=== PATIENT | male | born 1980 | race Caucasian/White ===

== ENCOUNTER 2016-05-25 11:55 | Emergency (ER) | payer OTHER ==
[~2016-05-25] VITALS: Ht 188 cm; Wt 117.9 kg
[~2016-05-25 11:55] MED LIST: CYCLOBENZAPRINE10 M1 PO; FLEXERIL10 MG PO; MOBIC15 M1 PO; NAPROSYN 500 M500 MG PO; PERCOCET 325 MG1 TA2 PO
[2016-05-25 12:11] VITALS: BP 137/85
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
--- NOTE | 2016-05-25 13:44 | RADIOLOGY REPORT ---
EXAMINATION: XR HAND, RIGHT CLINICAL INFORMATION: 35-year-old male with right hand injury. COMPARISON: None TECHNIQUE: AP, lateral, and oblique views of the right hand. FINDINGS: Linear, transverse, minimally displaced fracture is present involving the midshaft of the right 4th metacarpal with angulation deformity. The remainder of the visualized bones, articular margins, joint space appear unremarkable. The soft tissues are unremarkable. IMPRESSION: Fracture midshaft of the right 4th metacarpal.
[2016-05-25] MEDS ORDERED: PERCOCET 5-3251 EACH PO (14:14)
== END 2016-05-25 14:22 ==
LOC: ERH 11:55
DX: S62.324A Displaced fracture of shaft of fourth metacarpal bone, right hand, initial encounter for closed fracture (principal); Y04.0XXA Assault by unarmed brawl or fight, initial encounter; Y93.89 Activity, other specified; Y92.9 Unspecified place or not applicable
CPT/HCPCS: 73130-RT

== ENCOUNTER 2016-09-13 15:50 | Emergency (ER) | payer OTHER ==
[~2016-09-13] VITALS: Ht 188 cm; Wt 117.9 kg
[~2016-09-13 15:50] MED LIST changes: +PERCOCET 5-3251 EACH PO
[2016-09-13 16:35] LABS: ABSOLUTE BASOPHIL COUNT 0 /CUMM (0.0-0.2); ABSOLUTE EOSINOPHIL COUNT 0.2 /CUMM (0.0-0.7); ABSOLUTE GRANULOCYTE CT 6.3 /CUMM (1.4-6.5); ABSOLUTE LYMPH COUNT 1.9 /CUMM (1.2-3.4); ABSOLUTE MONOCYTE COUNT 0.9 /CUMM (0.10-0.60); BASOPHIL % 0.2 % (0.0-2.0); EOSINOPHIL % 1.9 % (0-5); GRANULOCYTE % 67.9 % (42.2-75.2); HEMATOCRIT 42.6 % (42-52); MEAN CORPUSCULAR HGB 28.4 PG (27.0-31.0); MEAN CORPUSCULAR HGB CONC 33.9 G/DL (33.0-37.0); MEAN CORPUSCULAR VOLUME 83.9 FL (80.0-94.0); MEAN PLATELET VOLUME 8.7 FL (7.4-10.4); PLATELET COUNT 248 /CUMM (130-400); RBC DISTRIBUTION WIDTH 12.9 % (11.5-14.5); RED BLOOD CELL CT 5.08 /CUMM (4.70-6.10); WHITE BLOOD CELL COUNT 9.3 /CUMM (4.8-10.8)
--- NOTE | 2016-09-13 17:13 | ED GENERAL ADULT ---
History of Present Illness General Chief Complaint: Abdominal Pain/Flank Pain Stated Complaint: ABD PAIN Source: patient Exam Limitations: no limitations Vital Signs & Intake/Output Vital Signs & Intake/Output Vital Signs Date Time Temp Pulse Resp B/P B/P Pulse O2 O2 Flow FiO2 Mean Ox Delivery Rate 09/13 1902 97.7 66 18 118/61 98 Room Air 09/13 1608 97.7 90 18 131/78 98 Room Air Allergies Coded Allergies: propofol (UNKNOWN 09/13/16) Uncoded Allergies: ANESTHESIA (WAS A CHILD/UNKNOWN SEVERITY 10/19/10) Reconcile Medications Cyclobenzaprine HCl 10 MG TABLET 1 TAB PO TID PRN MUSCLE RELAXANT MAY CAUSE DROWSINESS CYCLOBENZAPRINE HCL (Flexeril) 10 MG TAB 1 TAB PO TID PRN MUSCLE RELAXATION Dicyclomine Hydrochloride (Bentyl) 10 MG CAPSULE 1 CAP PO TID PRN abdominal cramping Meloxicam (Mobic) 15 MG TABLET 1 TAB PO DAILY PRN PAIN/INFLAMMATION Naproxen (Naprosyn) 500 MG TAB 1 TAB PO BID PRN CHEST PAIN PLEASE TAKE IT WITH FOOD Oxycodone HCl/Acetaminophen (Percocet 5-325 MG Tablet) 5 MG-325 MG TABLET 1 TAB PO BID PRN PAIN OXYCODONE HCL/ACETAMINOPHEN (Percocet 5-325 MG Tablet) 325 MG/5 MG TAB 1-2 TAB PO Q4-6 PRN PRN PAIN Triage Note: PT STATES THAT HE HAS CHROHNS DISEASE AND THAT FOR THE PAST HOUR HE HAS BEEN HAVING DIFFUSE ABD PAIN/N. DENIES VOMITTING. PAIN IS INTERMITTANT AND SHARP IN NATURE. DENIES URINARY SYMPTOMS Triage Nurses Notes Reviewed? yes HPI: 36-year-old male with a history of Crohn's disease presenting with diffuse sudden onset of sharp/cramping diffuse abdominal pain 2 hours. Reports pain started after eating spicey chicken wings, and that his Crohn's is normally flared by spicy foods. Endorses nausea. Denies vomiting, diarrhea, the stools, fevers, dysuria. Took 10 mg of prednisone at home without any pain relief. (ROZINA ZUNIGA PA-C) Past History Travel History Traveled to [place] past 21 day No Medical History Any Pertinent Medical History? 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 No (ROZINA ZUNIGA PA-C) Review of Systems Review of Systems Constitutional: Reports: no symptoms. EENTM: Reports: no symptoms. Respiratory: Reports: no symptoms. Cardiovascular: Reports: no symptoms. GI: Reports: abdominal pain, bloating, nausea. Denies: constipation, diarrhea, melena, bloody stool, vomiting. Genitourinary: Reports: no symptoms. Musculoskeletal: Reports: no symptoms. Skin: Reports: no symptoms. Neurological/Psychological: Reports: no symptoms. Hematologic/Endocrine: Reports: no symptoms. Immunologic/Allergic: Reports: no symptoms. (ROZINA ZUNIGA PA-C) Physical Exam Physical Exam General Appearance: well developed/nourished, no apparent distress, alert, awake , comfortable Head: atraumatic Eyes: Bilateral: normal appearance. Respiratory: normal breath sounds, lungs clear Cardiovascular: regular rate/rhythm, normal peripheral pulses Gastrointestinal: normal bowel sounds, soft, no distention, diffusely tender to palpation, no rebound or guarding Rectal: heme negative stool Neurologic/Psych: awake, alert, oriented x 3, normal gait, normal mood/affect Skin: intact, normal color, warm/dry Core Measures ACS in differential dx? No CVA/TIA Diagnosis: No Severe Sepsis Present: No Septic Shock Present: No (ROZINA ZUNIGA PA-C) Progress Differential Diagnoses I considered the following diagnoses in my evaluation of the patient: [Crohn's flare versus gastroenteritis versus food poisoning versus pancreatitis versus biliary versus appendicitis] Plan of Care: Orders Procedure Date/time Status URINALYSIS 09/13 1714 Complete LIPASE 09/13 1615 Complete LACTIC ACID 09/13 161 Complete COMPREHENSIVE METABOLIC PANEL 09/13 161 Complete CBC WITHOUT DIFFERENTIAL 09/13 161 Complete Current Medications Sig/Cole Start time Last Medication Dose Stop Time Status Admin Dicyclomine HCl 20 MG ONCE ONE 09/13 2014 UNVr (Bentyl) 09/14 2015 Laboratory Tests 09/13/16 1910: Lactic Acid Cancelled 09/13/16 1740: Urine Color YEL, Urine Clarity HAZY H, Urine pH 6.5, Ur Specific Wilson 1.020, Urine Protein NEG, Urine Ketones TRACE H, Urine Nitrite NEG, Urine Bilirubin NEG, Urine Urobilinogen 0.2, Ur Leukocyte Esterase NEG, Ur Microscopic SEDIMENT EXAMINED, Urine RBC 3-5, Urine WBC RARE, Ur Epithelial Cells RARE, Urine Mucus RARE, Urine Hemoglobin TRACE-LYSED H, Urine Glucose NEG 09/13/16 1714: Lipase Cancelled 09/13/16 1615: Anion Gap 15, Estimated GFR > 60, BUN/Creatinine Ratio 16.7, Glucose 90, Lactic Acid 1.7, Calcium 10.7 H, Total Bilirubin 0.5, AST 67 H, ALT 100 H, Alkaline Phosphatase 99, Total Protein 8.2, Albumin 5.1 H, Globulin 3.1, Albumin/ Globulin Ratio 1.6, Lipase 58, CBC w Diff NO MAN DIFF REQ, RBC 5.08, MCV 83.9, MCH 28.4, RDW 12.9, MPV 8.7, Gran % 67.9, Lymphocytes % 20.7, Monocytes % 9.3, Eosinophils % 1.9, Basophils % 0.2, Absolute Granulocytes 6.3, Absolute Lymphocytes 1.9, Absolute Monocytes 0.9 H, Absolute Eosinophils 0.2, Absolute Basophils 0, PUBS MCHC 33.9 Labs and urine all within normal limits. CT scan abdomen and pelvis was negative for acute Crohn's inflammation, but did show enlarged nonspecific retroperitoneal lymph nodes. Patient reports moderate pain relief after GI cocktail, morphine, Bentyl. Suspect gastroenteritis secondary to possible foul chicken or spicy food. We'll discharge home with Rx Bentyl, also instructed to use Maalox [id number] as needed. Will follow up with his PMD in the next 1-2 days, and given strict return precautions for any new or worsening symptoms. (NADIA ARMENTA,ROZINA) Initial ED EKG: none (NADIA ARMENTA,ROZINA) Departure Departure Disposition: HOME OR SELF CARE Condition: Stable Clinical Impression Primary Impression: Abdominal pain Referrals: PATIENT HAS NO PRIMARY CARE DR (PCP/Family) Additional Instructions: Take 10 mg of Bentyl every 8 hours as needed for abdominal pain/cramping. Follow-up with your primary care provider for reevaluation. Return to the ER for any new or worsening symptoms. Departure Forms: Customer Survey General Discharge Information Prescriptions: Current Visit Scripts Dicyclomine Hydrochloride (Bentyl) 1 CAP PO TID PRN abdominal cramping #20 CAP (ROZINA ZUNIGA PA-C) PA/NEWSPAPER ILLUSTRATOR Co-Sign Statement Statement: ED Attending supervision documentation- [] I saw and evaluated the patient. I have also reviewed all the pertinent lab results and diagnostic results. I agree with the findings and the plan of care as documented in the PA's/NEWSPAPER ILLUSTRATOR's documentation. [x] I have reviewed the ED Record and agree with the PA's/NEWSPAPER ILLUSTRATOR's documentation. [] Additions or exceptions (if any) to the PAs/NEWSPAPER ILLUSTRATOR's note and plan are summarized below: [] (CHRISTIAN LOBO,NANNETTE Mobley) Critical Care Note Critical Care Note Critical Care Time: non-applicable (NADIA ARMENTA,ROZINA)
[2016-09-13 19:02] VITALS: BP 118/61
--- NOTE | 2016-09-13 19:47 | CT SCAN REPORT ---
EXAMINATION: CT SCAN OF THE ABDOMEN AND PELVIS WITH CONTRAST CLINICAL INFORMATION: Crohn's colitis. Diffuse abdominal pain. COMPARISON: CT scan of the abdomen and pelvis 10/20/2010. TECHNIQUE: Process Development Manager images were obtained. CT acquisition of the abdomen and pelvis was performed and with intravenous administration of 95 mL Optiray 320. No adverse contrast reaction was reported. DLP: 703.48 mGy-cm. FINDINGS: There is minimal bibasilar subsegmental atelectasis. No pleural or pericardial effusion. Liver attenuation is homogeneous and there is no discrete hepatic parenchymal mass. The gallbladder is normal. No abnormal intrahepatic or extrahepatic biliary ductal dilatation. Spleen and pancreas are normal. Adrenal glands are normal. Kidneys demonstrate symmetric nephrographic enhancement. No discrete renal parenchymal mass. No hydronephrosis. No abnormal perinephric inflammation or collection. There is no abnormal mass or calcification along the expected course of the right or left ureters. The urinary bladder is unremarkable. There is subserosal fat within the distal ileum consistent with the clinical history of chronic inflammatory bowel disease. The stomach and small bowel are otherwise unremarkable. There is no obstruction. The colon and appendix are normal. There is no abnormal perirectal or presacral inflammation. No free intraperitoneal air or fluid. A few scattered nonspecific retroperitoneal lymph nodes are noted. The prostate gland is unremarkable. The abdominal wall is intact. There is no acute osseous finding. No worrisome lytic or blastic osseous lesion. IMPRESSION: There are scattered nonspecific retroperitoneal lymph nodes. These findings may represent a manifestation of mesenteric adenitis. Otherwise no discrete finding to provide an explanation for the patient's abdominal pain. There is a subserosal fat along a short segment of the distal ileum that is consistent with the patient's clinical history of chronic inflammatory bowel disease. No clear evidence of active bowel inflammation.
[2016-09-13] MEDS ORDERED: BENTYL10 M1 PO (20:25)
== END 2016-09-13 20:43 ==
LOC: ERH 15:50
PROVIDERS: Emergency Medicine
DX: R10.84 Generalized abdominal pain (principal)
CPT/HCPCS: 74177; 81001; 96374; 96375; J1885; J2930

== ENCOUNTER 2017-11-10 09:17 | Emergency (ER) | payer OTHER ==
[~2017-11-10] VITALS: Ht 188 cm; Wt 105.2 kg
[~2017-11-10 09:17] MED LIST changes: +BENTYL10 M1 PO; +CYCLOBENZAPRINE5 M2 PO; +IBUPROFEN800 M1 PO; +MERCAPTOPURINE50 M1 PO; +ZOFRAN ODT4 M1 SL
[2017-11-10 11:45] LABS: ABSOLUTE BASOPHIL COUNT 0 /CUMM (0.0-0.2); ABSOLUTE EOSINOPHIL COUNT 0.4 /CUMM (0.0-0.7); ABSOLUTE LYMPH COUNT 1.6 /CUMM (1.2-3.4); ABSOLUTE MONOCYTE COUNT 0.8 /CUMM (0.10-0.60); BASOPHIL % 0.3 % (0.0-2.0); HEMATOCRIT 42.3 % (42-52); MEAN CORPUSCULAR HGB 29.2 PG (27.0-31.0); MEAN CORPUSCULAR HGB CONC 34.6 G/DL (33.0-37.0); MEAN CORPUSCULAR VOLUME 84.2 FL (80.0-94.0); MEAN PLATELET VOLUME 8.9 FL (7.4-10.4); PLATELET COUNT 235 /CUMM (130-400); RED BLOOD CELL CT 5.02 /CUMM (4.70-6.10); WHITE BLOOD CELL COUNT 7.9 /CUMM (4.8-10.8)
--- NOTE | 2017-11-10 11:49 | ED GI/GU/ABDOMINAL COMPLAINT ---
History of Present Illness General Chief Complaint: Abdominal Pain/Flank Pain Stated Complaint: ABD PAIN Source: patient Exam Limitations: no limitations Vital Signs & Intake/Output Vital Signs & Intake/Output Vital Signs Date Time Temp Pulse Resp B/P B/P Pulse O2 O2 Flow FiO2 Mean Ox Delivery Rate 11/10 1503 98.8 66 18 124/66 99 11/10 1142 98.9 59 18 144/86 100 11/10 0937 97.0 74 20 109/67 99 Room Air Allergies Coded Allergies: No Known Allergies (06/30/17) Triage Note: PT TO ED WITH MOTHER FOR C/O ABD PAIN, N/V/D X 1 WEEK. H/O CROHN'S. DENIES S/S. DR WEAVER IS GI MD. Triage Nurses Notes Reviewed? yes HPI: 37-year-old white male with long-standing history of Crohn's disease presents with a worsening diffuse abdominal pain associated with nausea and one episode of bloody stool over the past week. He has not been taking his medications compliantly. He denies any previous history of fistulas or surgery. He is not on any steroids at this time. He reports that his symptoms are consistent with his previous Crohn's flares. He denies any fever, chills, melena, hematemesis, back pain, rash, chest pain or UTI symptoms. Patient reports his last colonoscopy was approximately [address] Weaver during which time they found "a lot of lumps". He does not have his current medications with him. Past History Travel History Traveled to [place] past 21 day No Medical History Any Pertinent Medical History? 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 No Review of Systems Review of Systems Constitutional: Reports: see HPI. Denies: no symptoms, chills, diaphoresis, fever, malaise, weakness, unexplained weight loss. All Other Systems: Reviewed and Negative Physical Exam Physical Exam General Appearance: well developed/nourished, alert, awake, moderate distress Head: atraumatic, normal appearance Eyes: Bilateral: normal appearance, PERRL, EOMI, normal inspection. Ears, Nose, Throat, Mouth: hearing grossly normal, moist mucous membrane Neck: normal inspection, supple, full range of motion, normal alignment Respiratory: normal breath sounds, chest non-tender, no respiratory distress, quiet respiration, lungs clear Cardiovascular: regular rate/rhythm Gastrointestinal: guarding, tenderness (diffuse, more in RLQ) Back: normal inspection, normal range of motion Extremities: normal range of motion Neurologic/Psych: no motor/sensory deficits, awake, alert, oriented x 3 Core Measures ACS in differential dx? No Sepsis Present: No Sepsis Focused Exam Completed? No Progress Differential Diagnosis: appendicitis, biliary colic, bowel obstruction, cholecystitis, diverticulitis, gastritis, hepatitis, ischemic bowel, inflamm bowel dis Plan of Care: Orders Procedure Date/time Status URINALYSIS 11/11 923 Complete LIPASE 11/11 923 Complete LACTIC ACID 11/11 923 Complete COMPREHENSIVE METABOLIC PANEL 11/11 923 Complete CBC WITHOUT DIFFERENTIAL 11/11 923 Complete Laboratory Tests 11/10/17 1224: Lactic Acid Cancelled 11/10/17 1130: Anion Gap 10, Estimated GFR > 60, BUN/Creatinine Ratio 14.3, Glucose 102 H, Lactic Acid 1.1, Calcium 9.9, Total Bilirubin 0.4, AST 43, ALT 85 H, Alkaline Phosphatase 85, Total Protein 7.2, Albumin 4.5, Globulin 2.7, Albumin/Globulin Ratio 1.7, Lipase 53, CBC w Diff NO MAN DIFF REQ, RBC 5.02, MCV 84.2, MCH 29.2, MCHC 34.6, RDW 13.0, MPV 8.9, Gran % 64.0, Lymphocytes % 20.8, Monocytes % 9.9 H, Eosinophils % 5.0, Basophils % 0.3, Absolute Granulocytes 5.0, Absolute Lymphocytes 1.6, Absolute Monocytes 0.8 H, Absolute Eosinophils 0.4, Absolute Basophils 0 11/10/17 0940: Urine Color YEL, Urine Clarity CLEAR, Urine pH 7.5, Ur Specific [place] 1.010, Urine Protein NEG, Urine Ketones NEG, Urine Nitrite NEG, Urine Bilirubin NEG, Urine Urobilinogen 0.2, Ur Leukocyte Esterase NEG, Ur Microscopic EXAM NOT REQUIRED, Urine Hemoglobin NEG, Urine Glucose NEG Initial ED EKG: none Comments: Patient continues to have abdominal pain after receiving morphine, Zofran, and Solu-Medrol. Dilaudid 0.5 mg has been ordered. Patient's lab data and CAT scan showed no acute inflammatory state. His CAT scan does show evidence of Crohn's disease but without acute inflammatory changes. Patient will be given a referral to GI quality control engineer and placed on a course of prednisone as well. Departure Departure Time of Disposition: 1524 Disposition: HOME OR SELF CARE Condition: Stable Clinical Impression Primary Impression: Crohns disease Qualifiers: Gastrointestinal tract location: unspecified location Digestive disease complication type: without complication Qualified Code: K50.90 - Crohn's disease, unspecified, without complications Secondary Impressions: Abdominal pain Qualifiers: Abdominal location: generalized Qualified Code: R10.84 - Generalized abdominal pain Referrals: Danie LOBO,Krys Dixon APRN (PCP/Family) Departure Forms: Customer Survey General Discharge Information
[2017-11-10 15:03] VITALS: BP 124/66
--- NOTE | 2017-11-10 15:09 | CT SCAN REPORT ---
EXAMINATION: CT ABDOMEN AND PELVIS WITH CONTRAST CLINICAL INFORMATION: Crohn's disease. Abdominal pain. COMPARISON: 03/19/2017 TECHNIQUE: Multidetector volumetric imaging was performed of the abdomen and pelvis following IV administration of 95 mL of Optiray 320 intravenous contrast. Sagittal and coronal reformatted images were obtained on the technologist's workstation. DLP: 705.33 mGy-cm FINDINGS: LUNG BASES: The visualized lung bases are unremarkable. LIVER, GALLBLADDER, AND BILIARY TREE: The liver is normal in size, shape, and attenuation. No focal hepatic lesion or biliary ductal dilatation is present. The gallbladder is unremarkable with no evidence of radiopaque gallstones, gallbladder wall thickening, or obvious pericholecystic inflammatory changes. PANCREAS: Unremarkable. SPLEEN: Unremarkable. ADRENAL GLANDS: Unremarkable. KIDNEYS AND URETERS: The kidneys are normal in size, shape, and attenuation. No hydronephrosis, hydroureter, or calculi seen. No perinephric stranding. BLADDER: Unremarkable. GASTROINTESTINAL TRACT: There are normal caliber and normal appearing oral contrast containing small bowel loops throughout the abdomen. There is a normal and unchanged appearing retrocecal appendix. No inflammatory changes are seen in the region of the terminal ileum or ileocecal junction. ABDOMINAL WALL: No significant hernia is appreciated. LYMPH NODES: Normal. VASCULAR: Unremarkable. PELVIC VISCERA: Unremarkable. OSSEOUS STRUCTURES: Unremarkable. IMPRESSION: Stable appearing changes of the terminal ileum with fatty infiltration of the bowel wall consistent with the given history of Crohn's colitis. There is no evidence of acute inflammatory change or abscess. A normal retrocecal appendix is present.
[2017-11-10] MEDS ORDERED: PREDNISONE50 M1 PO (15:29)
== END 2017-11-10 15:59 ==
LOC: ERH 09:17
PROVIDERS: Physician Assistant
DX: K50.90 Crohn's disease, unspecified, without complications (principal); R10.9 Unspecified abdominal pain; R11.0 Nausea; F17.210 Nicotine dependence, cigarettes, uncomplicated
CPT/HCPCS: 74177; 81003; 96374; 96375; J2405; J2930